=== PATIENT | female | born 1990 | race Caucasian/White ===

== ENCOUNTER 2017-09-19 10:20 | Inpatient (IN) | payer MEDICAID ==
[~2017-09-19] VITALS: Ht 154.9 cm; Wt 96.8 kg
[2017-09-19] VITALS (26 sets, daily range): BP systolic 113–01090; BP diastolic 5–95; PULSE 68–100; TEMP 97.5–98.3
[~2017-09-19 10:20] MED LIST: MOTRIN 800800 MG/TAB PO; PHENERGAN 25 TA25 MG PO; REGLAN 10MG10 MG/TAB PO; SPRINTEC 35 MCG1 TAB; TYLENOL 500MG500 MG PO
[2017-09-19 11:28] LABS: BASO # 0.1 (0.0-0.2); BASO % 0.5 % (0.0-2.0); EOS # 0.1 (0.0-0.7); EOS % 0.6 % (0-4.0); GRAN # 8.4 (1.4-6.5); GRAN % 75.4 % (42.2-75.2); HEMATOCRIT 42.5 % (37.0-47.0); HEMOGLOBIN 14.3 g/dl (12.5-16.0); LYMPH # 1.8 (1.2-3.4); LYMPH % 16.2 % (20.0-51.0); MEAN CELL VOLUME 86 fl (80.0-100.0); MEAN CORPUSCULAR HEMOGLOBIN 29 pg (27.0-31.0); MEAN CORPUSCULAR HGB CONC 34 g/dl (33.0-37.0); MEAN PLATELET VOLUME 13.1 fl (7.4-10.4); MONO # 0.7 (0.1-0.6); MONO % 6.7 % (1.7-9.3); PLATELET COUNT 184 K/mm3 (130-400); RED BLOOD COUNT 4.92 M/mm3 (4.10-5.30); WHITE BLOOD COUNT 11.1 K/mm3 (4.8-10.8)
[2017-09-19 11:36] LABS: ADJUSTED CALCIUM 9.6 mg/dL (8.4-10.2); ALBUMIN 3.6 gm/dL (3.5-5.0); BILIRUBIN,TOTAL 0.2 mg/dL (0.0-1.0); CALCIUM 9.3 mg/dL (8.4-10.2); CREATININE, serum 0.74 mg/dL (0.52-1.25); POTASSIUM 3.9 mmol/L (3.4-5.0); TOTAL PROTEIN 6.7 gm/dL (6.4-8.2)
[2017-09-20] VITALS: BP 124/70; PULSE 76; TEMP 98.3
[2017-09-20 07:06] LABS: BASO # 0.1 (0.0-0.2); BASO % 0.4 % (0.0-2.0); EOS # 0.2 (0.0-0.7); EOS % 1.4 % (0-4.0); GRAN # 8.5 (1.4-6.5); HEMATOCRIT 37.6 % (37.0-47.0); LYMPH % 17.6 % (20.0-51.0); MEAN CELL VOLUME 89 fl (80.0-100.0); MEAN CORPUSCULAR HGB CONC 32 g/dl (33.0-37.0); MONO # 0.7 (0.1-0.6); MONO % 6.3 % (1.7-9.3); PLATELET COUNT 157 K/mm3 (130-400); RED BLOOD COUNT 4.25 M/mm3 (4.10-5.30); WHITE BLOOD COUNT 11.5 K/mm3 (4.8-10.8)
[2017-09-20 07:09] LABS: HEMOGLOBIN 12.1 g/dl (12.5-16.0); MEAN CORPUSCULAR HEMOGLOBIN 28 pg (27.0-31.0)
[2017-09-20 08:03] VITALS: BP 122/74; PULSE 70; TEMP 97.9
[2017-09-20] MEDS ORDERED: PERCOCET 325 MG1 TA2 PO (12:55)
[2017-09-20] MEDS ORDERED: IBU600 MG PO (12:56)
[2017-09-20 16:10] VITALS: BP 132/59; PULSE 79; TEMP 98
[2017-09-20 20:30] VITALS: BP 133/69; PULSE 87; TEMP 98.6
[2017-09-21 08:00] VITALS: BP 143/75; PULSE 80; TEMP 97.6
== END 2017-09-21 15:55 | disposition home or self-care (01) | DRG 766 ==
LOC: LDRO 10:20 → LDR 11:15 → OB 11:15 → LDRO 09-30 07:15
PROVIDERS: Obstetrics & Gynecology
PROC: 10D00Z1 Extraction of Products of Conception, Low, Open Approach (ICD-10-PCS; principal; 2017-09-19)
DX: O42.02 Full-term premature rupture of membranes, onset of labor within 24 hours of rupture (principal); O34.211 Maternal care for low transverse scar from previous cesarean delivery; N85.8 Other specified noninflammatory disorders of uterus; O76 Abnormality in fetal heart rate and rhythm complicating labor and delivery; O69.81X0 Labor and delivery complicated by cord around neck, without compression, not applicable or unspecified; Z3A.38 38 weeks gestation of pregnancy; Z37.0 Single live birth
CPT/HCPCS: J0330; J0690; J1885; J2270; J2370; J2405; J7120

== ENCOUNTER → 2019-04-24 | Outpatient (CLI) | payer MEDICAID ==
[~2019-04-24] MED LIST changes: +IBU600 MG PO; +PERCOCET 325 MG1 TA2 PO
== END ==
LOC: DIA.ED 13:00
DX: O24.419 Gestational diabetes mellitus in pregnancy, unspecified control (principal); Z3A.21 21 weeks gestation of pregnancy
CPT/HCPCS: G0108

== ENCOUNTER → 2019-05-03 | Outpatient (CLI) | payer MEDICAID | LOC: DIA.ED 08:59 | DX: O24.419 Gestational diabetes mellitus in pregnancy, unspecified control (principal); Z3A.35 35 weeks gestation of pregnancy | CPT/HCPCS: G0108 ==

== ENCOUNTER → 2019-05-28 | Outpatient (CLI) | payer MEDICAID | LOC: DIA.ED 09:27 | DX: O24.419 Gestational diabetes mellitus in pregnancy, unspecified control (principal); Z3A.29 29 weeks gestation of pregnancy | CPT/HCPCS: G0108 ==

== ENCOUNTER 2019-06-02 21:47 | Emergency (ER) | payer MEDICAID ==
[~2019-06-02] VITALS: Ht 154.9 cm; Wt 101.8 kg
[2019-06-02 21:54] VITALS: BP 137/71; TEMP 98.6
--- NOTE | 2019-06-02 23:06 | NUR ---
FHR WNL NO UTERINE ACTIVITY NOTED OR PALPATED
[2019-06-02 23:21] LABS: BASO % 0.3 % (0.0-2.0); EOS # 0.1 (0.0-0.7); EOS % 1.2 % (0-4.0); GRAN # 8.4 (1.4-6.5); GRAN % 77.7 % (42.2-75.2); HEMOGLOBIN 11.2 g/dl (12.5-16.0); LYMPH # 1.4 (1.2-3.4); LYMPH % 13.1 % (20.0-51.0); MEAN CELL VOLUME 82 fl (80.0-100.0); MEAN CORPUSCULAR HEMOGLOBIN 26 pg (27.0-31.0); MEAN CORPUSCULAR HGB CONC 32 g/dl (33.0-37.0); MEAN PLATELET VOLUME 11.2 fl (7.4-10.4); MONO # 0.8 (0.1-0.6); MONO % 7.2 % (1.7-9.3); PLATELET COUNT 174 K/mm3 (130-400); RED BLOOD COUNT 4.28 M/mm3 (4.10-5.30); REDCELL DISTRIBUTION WIDTH-CV 14.9 % (11.5-14.5)
[2019-06-02 23:25] LABS: HEMATOCRIT 35.1 % (37.0-47.0)
[2019-06-02 23:33] LABS: ALBUMIN 3.6 gm/dL (3.5-5.0); BILIRUBIN,TOTAL 0.2 mg/dL (0.0-1.0); CALCIUM 9.1 mg/dL (8.4-10.2); CREATININE, serum 0.54 (0.52-1.25); MAGNESIUM 1.7 mg/dL (1.6-2.3); POTASSIUM 3.3 mmol/L (3.4-5.0); TOTAL PROTEIN 6.7 gm/dL (6.4-8.2)
[2019-06-03 00:04] LABS: TSH w REFLEX 1.96 uIU/mL (0.465-4.680)
[2019-06-03] MEDS ORDERED: ATIVAN 1MG T1 MG/TAB PO (00:06)
[2019-06-03 00:34] LABS: COLLECTION METHOD CLEAN CATCH
[2019-06-03 00:51] LABS: MUCOUS Present /lpf; PH 6 (5-8); URINE APPEARANCE Hazy; URINE BACTERIA None Seen /hpf; URINE BILIRUBIN Negative (NEGATIVE); URINE BLOOD Negative (NEGATIVE); URINE COLOR Yellow; URINE GLUCOSE Negative (NEGATIVE); URINE KETONE Negative (NEGATIVE); URINE LEUKOCYTE ESTERASE Trace (NEGATIVE); URINE NITRATE Negative (NEGATIVE); URINE PROTEIN(semi-quant) Negative (NEGATIVE); URINE UROBILINOGEN Negative (NEGATIVE)
[2019-06-03 01:23] VITALS: PULSE 101
== END 2019-06-03 01:23 | disposition home or self-care (01) ==
LOC: COL.ER 21:47
PROVIDERS: Emergency Medicine
DX: O99.343 Other mental disorders complicating pregnancy, third trimester (principal); F41.9 Anxiety disorder, unspecified; G47.00 Insomnia, unspecified; O24.419 Gestational diabetes mellitus in pregnancy, unspecified control; Z98.890 Other specified postprocedural states; Z3A.35 35 weeks gestation of pregnancy
CPT/HCPCS: J2060; J7040

== ENCOUNTER 2019-06-26 06:07 | Inpatient (IN) | payer MEDICAID ==
[~2019-06-26] VITALS: Ht 154.9 cm; Wt 108.6 kg
[2019-06-26] VITALS (20 sets, daily range): BP systolic 109–139; BP diastolic 56–81; PULSE 57–118; TEMP 97.7–98.5
[~2019-06-26 06:07] MED LIST changes: +ATIVAN 1MG T1 MG/TAB PO
--- NOTE | 2019-06-26 06:20 | NUR ---
Patient to LR3 with mother via wheelchair, changed into gown, FHR/TOCO monitors placed and explained. Patient states she has gabriele regularly since 0400 am. Denies leaking of fluid/vaginal bleeding. Patient very uncomfortable with each contraction and has a Rpt csection scheduled for Monday. Plan of care discussed. SVE-3/80/-3 and bag felt. called and updated and orders to admit patient. 0715: IV started in right hand, blood obtained and to lab, LR infusing. Superpubic area clipped and prepped for surgery. Socks on. Blood sugar-116 Plan of care discussed. 0756: Patient off monitor and ambulates to OR.
[2019-06-26] MEDS ORDERED: TYLENOL 500MG500 MG PO (06:34)
[2019-06-26] MEDS ORDERED: VISTARIL50 MG PO (06:35)
[2019-06-26] MEDS ORDERED: MULTI VITAMINS1 TAB PO (06:35)
[2019-06-26] MEDS ORDERED: ZANTAC 7575 MG PO (06:35)
--- NOTE | 2019-06-26 07:15 | NUR ---
Difficulty tracing FHR and monitor being adjusted.
[2019-06-26 07:26] LABS: BASO % 0.4 % (0.0-2.0); EOS # 0.1 (0.0-0.7); GRAN # 7.8 (1.4-6.5); GRAN % 77.9 % (42.2-75.2); HEMOGLOBIN 10.9 g/dl (12.5-16.0); LYMPH # 1.2 (1.2-3.4); LYMPH % 12.1 % (20.0-51.0); MEAN CELL VOLUME 80 fl (80.0-100.0); MEAN CORPUSCULAR HEMOGLOBIN 25 pg (27.0-31.0); MEAN CORPUSCULAR HGB CONC 31 g/dl (33.0-37.0); MEAN PLATELET VOLUME 12.1 fl (7.4-10.4); MONO # 0.8 (0.1-0.6); MONO % 8.1 % (1.7-9.3); PLATELET COUNT 171 K/mm3 (130-400); RED BLOOD COUNT 4.42 M/mm3 (4.10-5.30); REDCELL DISTRIBUTION WIDTH-CV 15.7 % (11.5-14.5)
[2019-06-26 07:28] LABS: HEMATOCRIT 35.3 % (37.0-47.0)
--- NOTE | 2019-06-26 17:10 | NUR ---
Patient sits at edge of bed and ambulates to bathroom with standby assist. [place] catheter removed and patient tolerates well. Pericare done, new gown, pad, underwear, and abdominal binder on. Patient ambulating and plan of care discussed.
[2019-06-27 06:56] VITALS: BP 120/52; PULSE 67; TEMP 97.9
[2019-06-27 07:00] LABS: HEMATOCRIT 31.1 % (37.0-47.0); HEMOGLOBIN 9.5 g/dl (12.5-16.0)
--- NOTE | 2019-06-27 09:53 | NUR ---
Initial visit; Mom thanked Risk Compliance Analyst for offering congratulations and God's blessings for the of her son. Risk Compliance Analyst thanked family for choosing [facility].
[2019-06-27] MEDS ORDERED: PERCOCET 325 MG1 TA2 PO (12:45)
[2019-06-27] MEDS ORDERED: IBU600 MG PO (12:45)
[2019-06-27 15:47] VITALS: BP 121/56; PULSE 78; TEMP 98.5
--- NOTE | 2019-06-27 15:50 | NUR ---
Patient stated she was not hungry for lunch. Was given pudding to eat with 1530 motrin.
[2019-06-27 21:00] VITALS: BP 157/81; PULSE 102; TEMP 98.3
[2019-06-28 03:00] VITALS: BP 129/68; PULSE 77; TEMP 97.6
[2019-06-28 06:57] VITALS: BP 140/65; PULSE 90; TEMP 97.7
[2019-06-28 12:21] VITALS: BP 142/97; PULSE 92
== END 2019-06-28 12:26 | disposition home or self-care (01) | DRG 788 ==
LOC: LDRO 06:07 → LDR 06:45 → LDRO 06:56 → LDR 06:57 → OB 06:57 → LDRO 07-07 08:02
PROVIDERS: Obstetrics & Gynecology; ADMIT Obstetrics & Gynecology
PROC: 10D00Z1 Extraction of Products of Conception, Low, Open Approach (ICD-10-PCS; principal; 2019-06-26)
DX: O24.420 Gestational diabetes mellitus in childbirth, diet controlled (principal); O34.211 Maternal care for low transverse scar from previous cesarean delivery; O99.344 Other mental disorders complicating childbirth; F41.9 Anxiety disorder, unspecified; O99.02 Anemia complicating childbirth; D64.9 Anemia, unspecified; O99.213 Obesity complicating pregnancy, third trimester; O75.82 Onset (spontaneous) of labor after 37 completed weeks of gestation but before 39 completed weeks gestation, with delivery by (planned) cesarean section; O71.81 Laceration of uterus, not elsewhere classified; Z3A.38 38 weeks gestation of pregnancy; Z37.0 Single live birth
CPT/HCPCS: J0171; J0690; J1885; J2270; J2370; J2405; J2550; J2590; J3010; J7030; J7120